=== PATIENT | female | born 1995 | race Caucasian/White ===

== ENCOUNTER 2017-06-06 10:42 | Day surgery (SDC) | payer OTHER ==
[2017-06-05 13:39] VITALS: BMI 21.9
[2017-06-06] MEDS ORDERED: Fentanyl 250 MCG/5 ML VIAL ONE ×2 (11:44→12:29)
[2017-06-06] MEDS ORDERED: Ferric Subsulfate 8 ML BOT ONE (12:00)
[2017-06-06] MEDS ORDERED: Meperidine HCl/PF 25 MG/ML VIAL ONE (12:22)
[2017-06-06] MEDS ORDERED: Dexamethasone 20 MG/5 ML VIAL ONE (14:28)
[2017-06-06] MEDS ORDERED: Lidocaine 1% PF 5 ML VIAL ONE (14:28)
[2017-06-06] MEDS ORDERED: Succinylcholine Chloride 20 MG/ML 10 ml SYRINGE FS ONE (14:28)
[2017-06-06] MEDS ORDERED: Ondansetron HCl/PF 4 MG/2 ML Vial ONE (14:28)
[2017-06-06] MEDS ORDERED: PROPOFOL 200 MG/20 ML VIAL ONE (14:28)
--- NOTE | 2017-06-06 18:43 | OP ---
DATE OF PROCEDURE: 06/06/2017 PREOPERATIVE DIAGNOSES: 1. Chronic adenotonsillitis. 2. Adenotonsillar hypertrophy. POSTOPERATIVE DIAGNOSES: 1. Chronic adenotonsillitis. 2. Adenotonsillar hypertrophy. PROCEDURE: Tonsillectomy and adenoidectomy. SURGEON: Keenan Rangel M.D. ESTIMATED BLOOD LOSS: 0 mL. COMPLICATIONS: None. ANESTHESIA: GETA. PROCEDURE IN DETAIL: After consent was obtained, the patient was identified, brought to the operatin g room, and placed on the operating table in the supine position. General endotracheal anesthesia an d intravenous access was obtained and we proceeded with positioning the patient for oropharyngeal ric lenore. Oropharyngeal exposure was obtained with a Dasha-Gary mouth gag after a head drape was placed and secured with a towel clip. The Dasha-Gary mouth gag was then suspended from the Patricia tray and palatal elevation was achieved with a red rubber catheter. The right tonsil was addressed first. W e used a curved Allis to grasp the tonsil and retract it medially as an anterior pillar incision was made. The retrotonsillar fascial plane was then established and blunt dissection was performed with the suction cautery. Blood vessels were anticipated, identified, and cauterized as they were encount ered. Ultimately, dissection was carried to the posterior tonsillar pillar mucosa which was incised hemostatically, as well as the base of tongue connection. The tonsil was then passed off as a specim en and bleeding points within the tonsillar bed were cauterized under direct visualization. We subse quently turned our attention to the contralateral side, where using a similar technique, a near ident ical procedure was performed. Again, the tonsil was grasped and retracted medially with a curved All is. The retrotonsillar fascial plane was established and while the anterior pillar was retracted med ially, the hemostatic blunt dissection of the tonsil with a suction cautery was performed with blood vessels anticipated, identified, and cauterized as they were encountered. Again, dissection continue d to the base of tongue and posterior tonsillar pillar mucosa which was incised in a hemostatic fashi on. The tonsillar beds were then carefully inspected and bleeding points were identified and cauteri zed with a suction cautery. After this portion of the procedure, hemostasis was completely obtained. Under direct mirror visualization, we visualized the adenoid pad. Under direct mirror visualizatio n, we removed the bulk of the adenoid tissue with the adenoid curette. We then packed the nasopharyn x for an appropriate period of time with Telly-Synephrine saturated tonsillar sponges. After a period of observation, we removed the pack. Under indirect mirror visualization, we obtained hemostasis and vaporization of residual adenoid tissue with electrocautery. The patient's oral cavity was copiousl y irrigated with iced saline and subsequently suctioned. After completion of the procedure, the nasa l cavity and oropharynx were irrigated and suctioned as were the gastric contents. The patient was t hen awakened and transferred to the recovery room where the patient remained in stable condition prio r to discharge to Day Stay.
== END 2017-06-06 13:49 | disposition home or self-care (01) ==
LOC: SDC 10:42
PROVIDERS: ATTEND Otolaryngology Plastic Surgery within the Head & Neck
DX: J35.03 Chronic tonsillitis and adenoiditis (principal); F32.9 Major depressive disorder, single episode, unspecified; F41.9 Anxiety disorder, unspecified; Z79.899 Other long term (current) drug therapy
CPT/HCPCS: 85014; 88304; 96374; J0131; J1100; J2001; J2175; J2405; J2704; J3010